=== PATIENT | female | born 1990 | race Two or more races ===

== ENCOUNTER → 2025-08-10 14:08 | Outpatient (CLI) | payer OTHER | END | disposition home or self-care (01) | LOC: PRENATAL 14:08 | PROVIDERS: ATTEND Obstetrics & Gynecology Maternal & Fetal Medicine | DX: O44.00 Complete placenta previa NOS or without hemorrhage, unspecified trimester (principal); O34.219 Maternal care for unspecified type scar from previous cesarean delivery; O09.219 Supervision of pregnancy with history of pre-term labor, unspecified trimester; O28.3 Abnormal ultrasonic finding on antenatal screening of mother; Z3A.24 24 weeks gestation of pregnancy ==

== ENCOUNTER 2025-10-23 10:28 | Outpatient (CLI) | payer OTHER | END 2025-10-23 10:29 | disposition home or self-care (01) | LOC: PRENATAL 10:28 | PROVIDERS: ATTEND Obstetrics & Gynecology Maternal & Fetal Medicine | DX: O26.843 Uterine size-date discrepancy, third trimester (principal); O34.219 Maternal care for unspecified type scar from previous cesarean delivery; O09.513 Supervision of elderly primigravida, third trimester; O28.3 Abnormal ultrasonic finding on antenatal screening of mother; Z3A.33 33 weeks gestation of pregnancy ==